=== PATIENT | male | born 1945 | race Caucasian/White ===

== ENCOUNTER 2017-03-25 18:12 | Emergency (ER) | payer MEDICARE ==
[~2017-03-25] VITALS: Ht 172.7 cm; Wt 69.0 kg
[~2017-03-25 18:12] MED LIST: ACET500T71 PO; ALLEGRA PO; AMLO1CAP14 PO; AMOX-291 PO; ASPI-496 PO; CARV6.252 PO; HYDR12.58 PO; HYDR473S47 PO
[2017-03-25 18:38] VITALS: BP 140/90
[2017-03-25 19:22] LABS: HEMATOCRIT 46.4 % (39.2-51.8); HEMOGLOBIN 16.1 g/dL (13.7-18.0); WHITE BLOOD COUNT 7.5 x10^3/uL (3.4-10)
[2017-03-25 19:31] LABS: BLOOD UREA NITROGEN 10 mg/dL (7-18)
== END 2017-03-25 20:25 | disposition home or self-care (01) ==
LOC: ED 19:47
DX: Z76.0 Encounter for issue of repeat prescription (principal); I10 Essential (primary) hypertension
CPT/HCPCS: 36415; 70450; 80048; 82040; 85025; 93005; 99285

== ENCOUNTER → 2017-09-05 | Outpatient (CLI) | payer MEDICARE | END | disposition home or self-care (01) | LOC: CVU 10:27 | PROVIDERS: ATTEND Internal Medicine Cardiovascular Disease | DX: I08.3 Combined rheumatic disorders of mitral, aortic and tricuspid valves (principal); I10 Essential (primary) hypertension | CPT/HCPCS: 93306 ==